=== PATIENT | female | born 1930 | race Caucasian/White ===

== ENCOUNTER 2018-06-18 17:09 | Inpatient (IN) | payer OTHER | END 2018-06-19 18:18 | disposition home or self-care (01) | LOC: ER 17:09 → TELE 22:44 → TELE-WESTW 23:51 | DX: I24.9 Acute ischemic heart disease, unspecified (principal) ==

== ENCOUNTER → 2020-02-07 | Emergency (ER) | payer OTHER ==
[~2020-02-07] VITALS: Ht 162.6 cm; Wt 54.4 kg
[~2020-02-07] MED LIST: ASPI-378 OR; TETANUS-DIPTH-ACEL PERTUSSIS 0.5ML SYR Tdap IM ONE
[2020-02-07 22:30] LABS: Basophils # (auto) 0.1 10 ^3/uL (0-0.2); Basophils % (auto) 0.7 % (0.0-2.0); Eosinophils # (auto) 0.4 10 ^3/uL (0-0.8); Eosinophils % (auto) 4.8 % (0.0-7.0); Hematocrit 43.4 % (36.0-46.0); Hemoglobin 14.3 g/dL (12.2-16.2); Lymphocytes # (auto) 1.6 10 ^3/uL (0.4-5.4); Lymphocytes % (auto) 18.4 % (10.0-50.0); Mean Corpuscular Hemoglobin 29.5 pg (28.0-32.0); Mean Corpuscular Hgb Conc. 32.9 g/dL (32.0-36.0); Mean Corpuscular Volume 89.8 fL (80.0-100.0); Monocytes # (auto) 0.6 10 ^3/uL (0-1.3); Neutrophils % (auto) 69.1 % (37.0-80.0); Nucleated Red Blood Cells % 0.1 %; Platelet Count (auto) 238 10^3/uL (140-450); Red Blood Cells 4.84 10^6/uL (4.0-5.20); Red Cell Distribution Width 13.4 % (11.8-14.3); White Blood Cell 8.7 10^3/uL (4.4-10.8)
[2020-02-07 22:42] LABS: Potassium 3.1 mmol/L (3.5-5.1)
[2020-02-07 22:49] LABS: Albumin 3.6 g/dL (3.4-5.0); Bilirubin, Total 0.6 mg/dL (0.2-1.0); Magnesium 2.4 mg/dL (1.6-2.6); Total Protein 6.8 g/dL (6.4-8.2)
[2020-02-07 23:09] VITALS: BP 168/99
== END | disposition home or self-care (01) ==
LOC: ER 16:56
DX: S51.812A Laceration without foreign body of left forearm, initial encounter (principal); S73.102A Unspecified sprain of left hip, initial encounter; I63.9 Cerebral infarction, unspecified; Z79.82 Long term (current) use of aspirin; W10.8XXA Fall (on) (from) other stairs and steps, initial encounter; Y93.89 Activity, other specified; Y92.89 Other specified places as the place of occurrence of the external cause; Y99.8 Other external cause status
CPT/HCPCS: 36415; 70450; 71045; 72192; 80053; 83735; 85025

== ENCOUNTER → 2020-02-16 | Outpatient (CLI) | payer OTHER ==
[~2020-02-16] MED LIST changes: -TETANUS-DIPTH-ACEL PERTUSSIS 0.5ML SYR Tdap IM ONE
[2020-02-16 10:25] LABS: Calcium 9.2 mg/dL (8.5-10.1); Potassium 4.1 mmol/L (3.5-5.1)
== END | disposition home or self-care (01) ==
LOC: LAB 09:52
PROVIDERS: ATTEND Internal Medicine
DX: R73.03 Prediabetes (principal); F03.90 Unspecified dementia, unspecified severity, without behavioral disturbance, psychotic disturbance, mood disturbance, and anxiety
CPT/HCPCS: 36415; 80048; 83036; 84443

== ENCOUNTER → 2020-09-25 | Outpatient (CLI) | payer OTHER | END | disposition home or self-care (01) | LOC: LAB 16:05 | PROVIDERS: ATTEND Internal Medicine | DX: R73.03 Prediabetes (principal) | CPT/HCPCS: 36415; 83036 ==

== ENCOUNTER 2021-01-22 15:42 | Inpatient (IN) | payer OTHER ==
[~2021-01-22] VITALS: Ht 165.1 cm; Wt 54.1 kg
[2021-01-22 17:56] LABS: Basophils # (auto) 0.1 10 ^3/uL (0-0.2); Basophils % (auto) 1.2 % (0.0-2.0); Eosinophils # (auto) 0.4 10 ^3/uL (0-0.8); Eosinophils % (auto) 4.2 % (0.0-7.0); Hemoglobin 16.8 g/dL (12.2-16.2); Lymphocytes % (auto) 21.8 % (10.0-50.0); Mean Corpuscular Hemoglobin 30.9 pg (28.0-32.0); Mean Corpuscular Hgb Conc. 34.3 g/dL (32.0-36.0); Mean Corpuscular Volume 90.3 fL (80.0-100.0); Monocytes # (auto) 0.7 10 ^3/uL (0-1.3); Monocytes % (auto) 7.1 % (0.0-12.0); Neutrophils # (auto) 6.2 10 ^3/uL (1.6-8.6); Neutrophils % (auto) 65.7 % (37.0-80.0); Nucleated Red Blood Cells % 0.1 %; Red Blood Cells 5.43 10^6/uL (4.0-5.20); Red Cell Distribution Width 13.3 % (11.8-14.3); White Blood Cell 9.4 10^3/uL (4.4-10.8)
[2021-01-22 18:22] LABS: Albumin 3.6 g/dL (3.4-5.0); Anion Gap 2 (5-15); Blood Urea Nitrogen 11 mg/dL (7-18); Calcium 9.5 mg/dL (8.5-10.1); Carbon Dioxide 30 mmol/L (21-32); Chloride 108 mmol/L (98-107); Glucose 96 mg/dL (74-106); Potassium 3.5 mmol/L (3.5-5.1); Sodium 140 mmol/L (136-145)
[2021-01-22 18:27] LABS: Alanine Aminotransferase 29 U/L (13-56); Alkaline Phosphatase 76 U/L (45-117); Aspartate Aminotransferase 21 U/L (15-37); BUN/Creatinine Ratio 12.9; Bilirubin, Total 0.5 mg/dL (0.2-1.0); GFR African American 81 mL/min; GFR Non-African American 67 mL/min; Total Protein 7.4 g/dL (6.4-8.2)
[2021-01-22] MEDS ORDERED: cloNIDine HCL 0.1 MG TAB PO ONE (21:15)
[2021-01-22] MEDS ORDERED: NITROGLYCERIN 0.4 MG SL TAB SL PRN (22:30)
[2021-01-22] MEDS ORDERED: POTASSIUM CHL 20 Meq TABLET PO ONE (22:30)
[2021-01-22] MEDS ORDERED: DOCUSATE SOD 100 MG CAP PO PRN (22:30)
[2021-01-22] MEDS ORDERED: ONDANSETRON HCL 4 MG/2 ML VIAL IV PRN (22:30)
[2021-01-22] MEDS ORDERED: HYDROcodone-ACET 5/325MG TAB PO PRN (22:30)
[2021-01-22] MEDS ORDERED: MORPHINE SULF INJ 2 MG/ML SYRINGE 1ML IV PRN (22:30)
[2021-01-22] MEDS ORDERED: ACETAMINOPHEN 325 MG TAB PO PRN (22:30)
[2021-01-22 22:45] LABS: Urine Bacteria NONE SEEN /hpf (None Seen); Urine Blood Negative /uL (Negative); Urine WBC 1 /hpf (0 - 5)
[2021-01-22] MEDS ORDERED: METO-158 PO (23:56)
[2021-01-23 05:00] VITALS: BP 153/76
[2021-01-23 05:09] LABS: Basophils # (auto) 0.1 10 ^3/uL (0-0.2); Basophils % (auto) 0.7 % (0.0-2.0); Eosinophils # (auto) 0.4 10 ^3/uL (0-0.8); Eosinophils % (auto) 5.2 % (0.0-7.0); Hematocrit 44.5 % (36.0-46.0); Lymphocytes # (auto) 2.2 10 ^3/uL (0.4-5.4); Lymphocytes % (auto) 26.2 % (10.0-50.0); Mean Corpuscular Hemoglobin 30.6 pg (28.0-32.0); Mean Corpuscular Hgb Conc. 33.7 g/dL (32.0-36.0); Mean Corpuscular Volume 90.9 fL (80.0-100.0); Monocytes # (auto) 0.6 10 ^3/uL (0-1.3); Monocytes % (auto) 7.5 % (0.0-12.0); Neutrophils % (auto) 60.4 % (37.0-80.0); Nucleated Red Blood Cells % 0.1 %; Red Cell Distribution Width 13.4 % (11.8-14.3); White Blood Cell 8.3 10^3/uL (4.4-10.8)
[2021-01-23 05:29] LABS: Potassium 3.5 mmol/L (3.5-5.1)
[2021-01-23 05:37] LABS: BUN/Creatinine Ratio 15.4; Bilirubin, Total 0.5 mg/dL (0.2-1.0); Calcium 8.9 mg/dL (8.5-10.1); Total Protein 6.1 g/dL (6.4-8.2)
[2021-01-23] MEDS: hydrALAZINE HCL 20 MG/ML VL IV PRN ×3 (05:53→19:54)
[2021-01-23] MEDS: SODIUM CHLOR 0.9% PF (SALINE LOCK) 10ML VIAL/SYR IV SCH ×3 (06:05→22:34)
[2021-01-23 09:00] VITALS: BP 140/77
[2021-01-23] MEDS: ENOXAPARIN SOD 30 MG/0.3 ML SYRINGE SC SCH (09:34)
[2021-01-23] MEDS: FAMOTIDINE (10MG/ML) 2ML VL IV SCH (09:34)
[2021-01-23] MEDS: ZINC SULFATE 220mg CAP or TAB PO SCH (09:35)
[2021-01-23] MEDS: MULTIPLE VITAMIN TAB PO SCH (09:35)
[2021-01-23] MEDS: METOPROLOL TARTRATE 25 MG TAB PO SCH ×2 (09:35→22:35)
[2021-01-23] MEDS: ASCORBIC ACID 500 MG TAB PO SCH ×2 (09:35→22:34)
[2021-01-23 13:00] VITALS: BP 120/67
[2021-01-23 17:00] VITALS: BP 180/87
[2021-01-23 21:44] VITALS: BP 149/83
[2021-01-23] MEDS: DONEPEZIL HYDROCHLORIDE 5 MG TAB PO SCH (22:34)
[2021-01-24] MEDS: LORazepam 2MG/ML-1ML VIAL IV PRN ×3 (03:08→23:11)
[2021-01-24 05:00] VITALS: BP 150/84
[2021-01-24] MEDS: SODIUM CHLOR 0.9% PF (SALINE LOCK) 10ML VIAL/SYR IV SCH ×3 (05:30→21:25)
[2021-01-24] MEDS: ZINC SULFATE 220mg CAP or TAB PO SCH (09:14)
[2021-01-24] MEDS: METOPROLOL TARTRATE 25 MG TAB PO SCH (09:14)
[2021-01-24] MEDS: ENOXAPARIN SOD 30 MG/0.3 ML SYRINGE SC SCH (09:14)
[2021-01-24] MEDS: ASCORBIC ACID 500 MG TAB PO SCH ×2 (09:14→21:26)
[2021-01-24] MEDS: MULTIPLE VITAMIN TAB PO SCH (09:14)
[2021-01-24] MEDS: FAMOTIDINE (10MG/ML) 2ML VL IV SCH (09:15)
[2021-01-24] MEDS: METOPROLOL TARTRATE 50 MG TAB PO SCH ×2 (10:28→21:25)
[2021-01-24] MEDS: hydrALAZINE HCL 20 MG/ML VL IV PRN (20:42)
[2021-01-24] MEDS: DONEPEZIL HYDROCHLORIDE 5 MG TAB PO SCH (21:26)
[2021-01-24 22:00] VITALS: BP 180/90
[2021-01-25 05:00] VITALS: BP 170/97
[2021-01-25] MEDS: SODIUM CHLOR 0.9% PF (SALINE LOCK) 10ML VIAL/SYR IV SCH ×3 (06:22→21:36)
[2021-01-25] MEDS: hydrALAZINE HCL 20 MG/ML VL IV PRN ×2 (06:58→18:15)
[2021-01-25 09:00] VITALS: BP 140/76
[2021-01-25 13:00] VITALS: BP 133/73
[2021-01-25] MEDS: ASCORBIC ACID 500 MG TAB PO SCH ×2 (13:18→21:37)
[2021-01-25] MEDS: amLODIPine BESYLATE 5 MG TAB PO SCH (13:19)
[2021-01-25] MEDS: FAMOTIDINE (10MG/ML) 2ML VL IV SCH (13:20)
[2021-01-25] MEDS: METOPROLOL TARTRATE 50 MG TAB PO SCH ×2 (13:20→21:37)
[2021-01-25] MEDS: ENOXAPARIN SOD 30 MG/0.3 ML SYRINGE SC SCH (13:22)
[2021-01-25] MEDS: ZINC SULFATE 220mg CAP or TAB PO SCH (13:34)
[2021-01-25] MEDS: MULTIPLE VITAMIN TAB PO SCH (13:34)
[2021-01-25] MEDS: LORazepam 2MG/ML-1ML VIAL IV PRN (16:25)
[2021-01-25 17:00] VITALS: BP 160/87
[2021-01-25] MEDS: DONEPEZIL HYDROCHLORIDE 5 MG TAB PO SCH (21:37)
[2021-01-26 05:00] VITALS: BP 157/87
[2021-01-26] MEDS: hydrALAZINE HCL 20 MG/ML VL IV PRN (05:23)
[2021-01-26] MEDS: SODIUM CHLOR 0.9% PF (SALINE LOCK) 10ML VIAL/SYR IV SCH ×3 (05:24→22:00)
[2021-01-26 08:00] VITALS: BP 92/73
[2021-01-26 09:00] VITALS: BP 92/73
[2021-01-26] MEDS ORDERED: ATORVASTATIN 20 MG TAB PO ONE (09:00)
[2021-01-26 09:57] LABS: Cholesterol 248 mg/dL (< 200); HDL Cholesterol 51 mg/dL (40-59); LDL Cholesterol 161 mg/dL (< 100); Triglycerides 190 mg/dL (< 150)
[2021-01-26] MEDS: FAMOTIDINE (10MG/ML) 2ML VL IV SCH (11:23)
[2021-01-26] MEDS: ASPirin 81 mg TAB PO SCH (11:24)
[2021-01-26] MEDS: METOPROLOL TARTRATE 50 MG TAB PO SCH ×2 (11:24→23:55)
[2021-01-26] MEDS: ZINC SULFATE 220mg CAP or TAB PO SCH (11:24)
[2021-01-26] MEDS: ASCORBIC ACID 500 MG TAB PO SCH ×2 (11:25→23:55)
[2021-01-26] MEDS: MULTIPLE VITAMIN TAB PO SCH (11:25)
[2021-01-26] MEDS: amLODIPine BESYLATE 5 MG TAB PO SCH (11:25)
[2021-01-26] MEDS: ENOXAPARIN SOD 30 MG/0.3 ML SYRINGE SC SCH (11:26)
[2021-01-26 12:56] VITALS: BP 154/58
[2021-01-26 13:00] VITALS: BP 134/68
[2021-01-26 22:00] VITALS: BP 138/69
[2021-01-26] MEDS ORDERED: ATORVASTATIN 20 MG TAB PO SCH (22:00)
[2021-01-26] MEDS: DONEPEZIL HYDROCHLORIDE 5 MG TAB PO SCH (23:47)
[2021-01-27 05:00] VITALS: BP 147/77
[2021-01-27] MEDS: SODIUM CHLOR 0.9% PF (SALINE LOCK) 10ML VIAL/SYR IV SCH ×2 (06:04→14:59)
[2021-01-27 08:00] VITALS: BP 126/66
[2021-01-27] MEDS: ASPirin 81 mg TAB PO SCH (10:17)
[2021-01-27] MEDS: FAMOTIDINE (10MG/ML) 2ML VL IV SCH (10:17)
[2021-01-27] MEDS: ENOXAPARIN SOD 30 MG/0.3 ML SYRINGE SC SCH (10:18)
[2021-01-27] MEDS: ASCORBIC ACID 500 MG TAB PO SCH (10:18)
[2021-01-27] MEDS: MULTIPLE VITAMIN TAB PO SCH (10:18)
[2021-01-27] MEDS: ZINC SULFATE 220mg CAP or TAB PO SCH (10:18)
[2021-01-27] MEDS: METOPROLOL TARTRATE 50 MG TAB PO SCH (10:20)
[2021-01-27] MEDS: amLODIPine BESYLATE 5 MG TAB PO SCH (10:21)
[2021-01-27 13:00] VITALS: BP 127/65
== END 2021-01-27 14:30 | disposition home health service (06) | DRG 77 ==
LOC: ER 15:42 → TELE 22:18 → TELE-WESTW 23:14
PROVIDERS: ADMIT Nurse Practitioner Family; ATTEND Family Medicine
DX: I67.4 Hypertensive encephalopathy (principal); I63.89 Other cerebral infarction; I16.1 Hypertensive emergency; Z20.822 Contact with and (suspected) exposure to COVID-19; I10 Essential (primary) hypertension; N85.2 Hypertrophy of uterus; E78.5 Hyperlipidemia, unspecified; G30.9 Alzheimer's disease, unspecified; Z96.642 Presence of left artificial hip joint; F02.80 Dementia in other diseases classified elsewhere, unspecified severity, without behavioral disturbance, psychotic disturbance, mood disturbance, and anxiety; Z79.82 Long term (current) use of aspirin; Z79.899 Other long term (current) drug therapy; Z86.73 Personal history of transient ischemic attack (TIA), and cerebral infarction without residual deficits
CPT/HCPCS: 36415; 70450; 70551; 71045; 72192; 73070; 76856; 80053; 80061; 81001; 82607; 82746; 84484; 85025; 87426; 93886; G0378; J3490

== ENCOUNTER 2021-03-19 15:50 | Emergency (ER) | payer OTHER ==
[~2021-03-19] VITALS: Ht 152.4 cm; Wt 47.6 kg
[~2021-03-19 15:50] MED LIST changes: +METO-158 PO
[2021-03-19 16:43] LABS: Basophils # (auto) 0 10 ^3/uL (0-0.2); Basophils % (auto) 0.4 % (0.0-2.0); Eosinophils # (auto) 0.1 10 ^3/uL (0-0.8); Eosinophils % (auto) 1.5 % (0.0-7.0); Hematocrit 47.3 % (36.0-46.0); Hemoglobin 15.6 g/dL (12.2-16.2); Lymphocytes # (auto) 1.6 10 ^3/uL (0.4-5.4); Lymphocytes % (auto) 16.3 % (10.0-50.0); Mean Corpuscular Hemoglobin 29.8 pg (28.0-32.0); Mean Corpuscular Hgb Conc. 32.9 g/dL (32.0-36.0); Mean Corpuscular Volume 90.5 fL (80.0-100.0); Monocytes # (auto) 0.6 10 ^3/uL (0-1.3); Monocytes % (auto) 6.3 % (0.0-12.0); Neutrophils # (auto) 7.4 10 ^3/uL (1.6-8.6); Neutrophils % (auto) 75.5 % (37.0-80.0); Red Blood Cells 5.23 10^6/uL (4.0-5.20); Red Cell Distribution Width 13.3 % (11.8-14.3); White Blood Cell 9.8 10^3/uL (4.4-10.8)
[2021-03-19 17:01] LABS: Albumin 3.1 g/dL (3.4-5.0); Anion Gap 4 (5-15); Blood Urea Nitrogen 15 mg/dL (7-18); Calcium 9.1 mg/dL (8.5-10.1); Carbon Dioxide 28 mmol/L (21-32); Chloride 108 mmol/L (98-107); Glucose 86 mg/dL (74-106); Potassium 3.6 mmol/L (3.5-5.1); Sodium 140 mmol/L (136-145)
[2021-03-19 17:08] LABS: Alanine Aminotransferase 32 U/L (13-56); Alkaline Phosphatase 65 U/L (45-117); Aspartate Aminotransferase 23 U/L (15-37); BUN/Creatinine Ratio 19.5; Bilirubin, Total 0.4 mg/dL (0.2-1.0); GFR African American 91 mL/min; GFR Non-African American 75 mL/min; Total Protein 6.2 g/dL (6.4-8.2)
[2021-03-20] VITALS: BP 168/98
== END 2021-03-19 20:52 | disposition home or self-care (01) ==
LOC: EDBD 15:50 → ER 15:50
DX: S01.01XA Laceration without foreign body of scalp, initial encounter (principal); I10 Essential (primary) hypertension; W01.0XXA Fall on same level from slipping, tripping and stumbling without subsequent striking against object, initial encounter; Y93.89 Activity, other specified; Y92.89 Other specified places as the place of occurrence of the external cause; Y99.8 Other external cause status
CPT/HCPCS: 12002; 36415; 70450; 72125; 80053; 84484; 85025